=== PATIENT | female | born 1975 | race Caucasian/White ===

== ENCOUNTER 2020-12-03 23:40 | Emergency (ER) | payer OTHER ==
[2020-12-03 23:52] VITALS: BP 117/45; PULSE 55; TEMP 97.8; BMI 23.3
[2020-12-04] MEDS ORDERED: DIPHTH,PERTUSS(ACELL),TET 0.5 ML DISP.SYRIN IM ONE (01:34)
== END 2020-12-04 02:11 | disposition home or self-care (01) ==
LOC: JER 23:40
PROC: 3E0234Z Introduction of Serum, Toxoid and Vaccine into Muscle, Percutaneous Approach (ICD-10-PCS; principal; 2020-12-03)
DX: S41.111A Laceration without foreign body of right upper arm, initial encounter (principal)
CPT/HCPCS: 90471; 90715; 99284-25